=== PATIENT | male | born 1980 ===

== ENCOUNTER 2019-08-30 14:05 | Observation (INO) | payer OTHER, SELFPAY ==
[2019-08-30] VITALS (53 sets, daily range): BP systolic 110–145; BP diastolic 48–87; PULSE 65–94; RESP 10–31; TEMP 36.1–37.1; O2SAT 94–99
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
[2019-08-30] MEDS: Normal Saline 1,000 ML 1000 ML IV (14:22)
[2019-08-30 14:28] LABS: Abs Immature Grans 0.03 k/cumm (0.0-0.09); Absolute Basophil Count 0.02 k/cumm (0.0-0.2); Absolute Eosinophil Count 0.06 k/cumm (0.0-0.7); Absolute Lymphocyte Count 1.84 k/cumm (1.2-3.4); Absolute Monocyte Count 0.71 k/cumm (0.11-0.7); Absolute Neutrophil Count 8.06 k/cumm (1.2-6.7); Basophils % 0.2; Eosinophils % 0.6; HCT 42.6 % (40.0-50.0); HGB 14.5 g/dL (13.5-17.5); Immature Grans % 0.3 %; Lymphocytes % 17.2; Mean Corpuscular Hemoglobin 30.5 pg (27.0-33.0); Mean Corpuscular Volume 89.5 fL (80-95); Mean Platelet Volume 11.1 fL (8.0-11.0); Monocytes % 6.6; Neutrophils % 75.1; Platelet Count 252 x1000/uL (130-400); RBC 4.76 m/cumm (4.50-6.00); RBC Distribution Width 12.6 % (11.8-14.1); White Blood Cell Count 10.72 k/cumm (4.4-10.8)
[2019-08-30 14:46] LABS: ALT 46 U/L (16-63); AST 41 U/L (15-37); Albumin 4.2 g/dL (3.4-5.0); Alkaline Phosphatase 65 U/L (46-116); Anion Gap 10.6 mmol/L (3-11); BUN 15 mg/dL (7-18); Bilirubin, Total 0.7 mg/dL (0.2-1.0); CO2 26.4 mmol/L (21.0-32.0); CREATININE 1.11 mg/dL (0.70-1.30); Calcium 9.2 mg/dL (8.5-10.1); Chloride 103 mmol/L (98-107); Glucose 97 mg/dL (74-106); Lipase 1105 U/L (73-393); Potassium 3.9 mmol/L (3.5-5.1); Sodium 140 mmol/L (136-145); Total Protein 7.5 g/dL (6.4-8.2)
[2019-08-30] MEDS: HYDROmorphone 2 MG/ML VIAL 1 MG IVP (15:01)
--- NOTE | 2019-08-30 15:01 | DI.CT_ITS ---
EXAM: CT CHEST/ABD/PEL W CLINICAL HISTORY: Trauma right shoulder pain. TECHNIQUE: Imaging Protocol: Axial computed tomography images with coronal and sagittal reformatted images were created and reviewed CONTRAST MATERIAL: Intravenous: Omnipaque 350 Contrast volume:structured data in ml Oral: yes / no COMPARISON: CR XR SHOULDER RT COMPLETE 2+V from 08/30/2019 FINDINGS: CHEST: There is a comminuted fracture of the right clavicle. There are fractures of the right anterior 2nd through 4th ribs and fractures of the right posterior 5th through 7th ribs. No pneumothorax is seen. There are mildly increased pulmonary densities seen adjacent to the areas of rib fracture consisten t with mild contusion. There is no pleural or pericardial effusion. No spine fracture is seen. ABDOMEN: Liver: Normal density. No laceration. Gallbladder and biliary tract: No radiodense calculus or dilation. Pancreas: Normal density, no abnormal calcifications or inflammatory process. Spleen: Normal. Kidneys: Normal size, contour and axis. No radiodense stones or obstructive uropathy. No masses seen. Adrenal glands: No masses seen. Aorta: Abdominal portion non-dilated. Lymph nodes: Within normal limits. PELVIS: Bladder: Symmetric distention, no gross wall thickening. Bowel: No obstruction or bowel wall thickening. Diverticulosis without evidence of diverticulitis. No rmal appendix. Peritoneal cavity: No ascites, collection or mesenteric inflammatory response. Bones: Within normal limits. Reproductive organs: Within normal limits. IMPRESSION: Right clavicle fracture and multiple right rib fractures. Mild pulmonary contusions. No evidence of p neumothorax. No acute abnormality is seen in the abdomen or pelvis. RADIATION DOSE DELIVERED: Total DLP DATA REPOSITORY: All CT scans at this facility are submitted to the National Radiology Data Registry (NRDR) Dose Index Registry (DIR) with the [employer] ([employer]). RADIATION OPTIMIZATION: All CT scans at this facility use at least one of these dose optimization te chniques: automated exposure control; mA and/or kV adjustment per patient size (includes targeted exa ms where dose is matched to clinical indication); or iterative reconstruction.
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
[2019-08-30] MEDS: Omnipaque 350 MG/ML 100 ML BTL IJ (15:24)
[2019-08-30] MEDS: Normal Saline - Diluent 50 ML VIAL IV (15:24)
[2019-08-30] MEDS: Normal Saline Flush 10 ML SYR IVP ×2 (15:25→23:36)
--- NOTE | 2019-08-30 15:42 | NUR.NOTE ---
Nursing Note: PT stable, pain is 4/10. Pt reports This is the best i've felt since I got here. Vitals stable, awaiting radiology results.
--- NOTE | 2019-08-30 15:59 | DI.VRAD_ITS ---
PROCEDURE INFORMATION: Exam: XR Right Shoulder Exam date and time: 08/30/2019 3:12 PM Age: 39 years old Clinical indication: Other: Trauma TECHNIQUE: Imaging protocol: XR Right shoulder. Views: 2 or more views. COMPARISON: No relevant images were readily available for comparison purposes. FINDINGS: Redemonstrated right clavicular fracture as well as multiple rib fractures which are better evaluated on the same day CT chest abdomen and pelvis. Please see the associated report. No acute fracture or dislocation of the right shoulder otherwise. Visualized lung is clear. Impression: Redemonstrated right clavicular and right rib fractures which are better seen on the same day CT. No acute fracture or dislocation of the shoulder otherwise. Dictated and Authenticated by: Alessio Walsh MD. Ordering:PADMINI Morales MD
--- NOTE | 2019-08-30 16:23 | NUR.NOTE ---
Nursing Note: 1515 pt requested additional pain medication---per provider wait 30 min and see if still needed----1545 provider decided pt could have an additional 0.5 mg of Dilaudid---when I brought it in to pt he decided he was comfortable enough and declined medication at this time--med wasted with Pao Morales RN witnessing.
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
--- NOTE | 2019-08-30 17:50 | DI.VRAD_ITS ---
PROCEDURE INFORMATION: Exam: CT Chest With Contrast Exam date and time: 08/30/2019 3:15 PM Age: 39 years old Clinical indication: Other: Trauma right shoulder pain TECHNIQUE: Imaging protocol: Computed tomography of the chest with intravenous contrast. Radiation optimization: All CT scans at this facility use at least one of these dose optimization techniques: automated exposure control; mA and/or kV adjustment per patient size (includes targeted exams where dose is matched to clinical indication); or iterative reconstruction. COMPARISON: No relevant images were readily available for comparison purposes. FINDINGS: Lungs: No suspicious pulmonary nodules identified. Small associated pulmonary contusions are present at sites of rib fracture. Heart: Heart is normal size. Liver: Hypoattenuating hepatic lesion which would be statistically benign in a patient with no past history of malignancy. No follow up required unless clinically indicated. Liver is otherwise unremarkable. Gallbladder and bile ducts: Gallbladder is unremarkable. Pancreas: Pancreas is unremarkable. Spleen: Spleen is unremarkable. Adrenals: Unremarkable bilateral adrenals. Kidneys and ureters: Unremarkable bilateral kidneys. Stomach and bowel: Nonobstructive bowel. Diverticulosis without evidence of diverticulitis. Appendix: Normal caliber appendix. Intraperitoneal space: Unremarkable. Vasculature: Aorta is normal caliber. Lymph nodes: No axillary, mediastinal, or hilar lymphadenopathy. No suspicious lymphadenopathy. Bladder: Bladder is unremarkable. Reproductive: Prostatic calcifications. Bones/joints: Scattered bony degenerative changes. Benign-appearing sclerotic lesion within the left iliac bone. Image 100 series 4. There is a comminuted mild to moderately displaced fracture of the right mid to distal clavicle. Acute appearing nondisplaced fracture of the right 1st rib anteriorly. Acute appearing comminuted mildly displaced fracture of the right anterior 2nd rib. Nondisplaced acute appearing fracture of the right anterior 3rd rib. Nondisplaced acute appearing fracture of the right anterolateral 4th rib. Nondisplaced acute appearing fracture of the right anterolateral 5th rib. Comminuted minimally displaced fracture of the right posterior 6th rib as well as a nondisplaced fracture of the lateral 6th rib. Nondisplaced acute appearing fracture of the right posterior 7th rib. Soft tissues: Surgical changes along the right inguinal region likely related to prior right inguinal repair. Superficial soft tissues are otherwise unremarkable. Other findings: Thyroid is unremarkable. IMPRESSION: Multiple acute appearing rib fractures as detailed with associated small pulmonary contusions at site of several rib fractures. No pneumothorax. Comminuted mildly displaced right mid to distal clavicular fracture. PROCEDURE INFORMATION: Exam: CT Abdomen And Pelvis With Contrast Exam date and time: 08/30/2019 3:15 PM Age: 39 years old Clinical indication: Other: Trauma right shoulder pain TECHNIQUE: Imaging protocol: Computed tomography of the abdomen and pelvis with intravenous contrast. Radiation optimization: All CT scans at this facility use at least one of these dose optimization techniques: automated exposure control; mA and/or kV adjustment per patient size (includes targeted exams where dose is matched to clinical indication); or iterative reconstruction. Contrast material: OMNIPAQUE 350; Contrast volume: 100 ml; Contrast route: INTRAVENOUS (IV); COMPARISON: No relevant images were readily available for comparison purposes. FINDINGS: Lungs: No suspicious pulmonary nodules identified. Small associated pulmonary contusions are present at sites of rib fracture. Heart: Heart is normal size. Liver: Hypoattenuating hepatic lesion which would be statistically benign in a patient with no past history of malignancy. No follow up required unless clinically indicated. Liver is otherwise unremarkable. Gallbladder and bile ducts: Gallbladder is unremarkable. Pancreas: Pancreas is unremarkable. Spleen: Spleen is unremarkable. Adrenals: Unremarkable bilateral adrenals. Kidneys and ureters: Unremarkable bilateral kidneys. Stomach and bowel: Nonobstructive bowel. Diverticulosis without evidence of diverticulitis. Appendix: Normal caliber appendix. Intraperitoneal space: Unremarkable. Vasculature: Aorta is normal caliber. Lymph nodes: No axillary, mediastinal, or hilar lymphadenopathy. No suspicious lymphadenopathy. Bladder: Bladder is unremarkable. Reproductive: Prostatic calcifications. Bones/joints: Scattered bony degenerative changes. Benign-appearing sclerotic lesion within the left iliac bone. Image 100 series 4. There is a comminuted mild to moderately displaced fracture of the right mid to distal clavicle. Acute appearing nondisplaced fracture of the right 1st rib anteriorly. Acute appearing comminuted mildly displaced fracture of the right anterior 2nd rib. Nondisplaced acute appearing fracture of the right anterior 3rd rib. Nondisplaced acute appearing fracture of the right anterolateral 4th rib. Nondisplaced acute appearing fracture of the right anterolateral 5th rib. Comminuted minimally displaced fracture of the right posterior 6th rib as well as a nondisplaced fracture of the lateral 6th rib. Nondisplaced acute appearing fracture of the right posterior 7th rib. Soft tissues: Surgical changes along the right inguinal region likely related to prior right inguinal repair. Superficial soft tissues are otherwise unremarkable. Other findings: Thyroid is unremarkable. IMPRESSION: Multiple acute appearing rib fractures as detailed with associated small pulmonary contusions at site of several rib fractures. No pneumothorax. Comminuted mildly displaced right mid to distal clavicular fracture. Dictated and Authenticated by: Alessio Walsh MD. Ordering:PADMINI Morales MD
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
[2019-08-30] MEDS: Ketorolac 30 MG/ML VIAL IVP ×2 (18:46→23:36)
[2019-08-30] MEDS: oxyCODONE 5 MG TAB PO (20:58)
[2019-08-30] MEDS: Docusate Sodium 100 MG CAP PO (20:59)
--- NOTE | 2019-08-31 | DI.RAD_ITS ---
EXAM: XR CHEST 2V PA LATERAL CLINICAL HISTORY: f/u pulm contusion and rib fractures TECHNIQUE: 2D digital imaging was performed. COMPARISON: CT CT CHEST/ABD/PEL W from 08/30/[address] CHEST/ABD/PEL W from 08/30/2019 CR XR SHOULDER RT COMPLETE 2+V from 08/30/2019 FINDINGS: There is a right clavicle fracture. Lateral view is limited by patient arm positioning. No pneumoth orax is seen. The lungs are not well inflated. There is basilar atelectasis. The heart size is nor mal. IMPRESSION: Mild basilar atelectasis. DATA REPOSITORY: RADIATION DOSE DELIVERED:
[2019-08-31 00:59] VITALS: BP 124/61; PULSE 65; RESP 17; TEMP 37.1; O2SAT 98
[2019-08-31 03:34] VITALS: BP 117/77; PULSE 61; RESP 16; TEMP 37.1; O2SAT 98
[2019-08-31] MEDS: Ketorolac 30 MG/ML VIAL IVP (05:41)
[2019-08-31] MEDS: oxyCODONE 5 MG TAB PO (06:59)
[2019-08-31] MEDS: Acetaminophen 325 MG TAB 650 MG PO (07:02)
[2019-08-31 07:16] LABS: ALT 39 U/L (16-63); AST 28 U/L (15-37); Albumin 3.7 g/dL (3.4-5.0); Alkaline Phosphatase 56 U/L (46-116); Anion Gap 8.3 mmol/L (3-11); BUN 12 mg/dL (7-18); CO2 26.7 mmol/L (21.0-32.0); CREATININE 0.98 mg/dL (0.70-1.30); Calcium 8.8 mg/dL (8.5-10.1); Chloride 105 mmol/L (98-107); Glucose 91 mg/dL (74-106); Potassium 4.1 mmol/L (3.5-5.1); Sodium 140 mmol/L (136-145); Total Protein 6.8 g/dL (6.4-8.2)
--- NOTE | 2019-08-31 07:22 | DI.VRAD_ITS ---
PROCEDURE INFORMATION: Exam: XR Chest, 2 Views Exam date and time: 08/31/2019 6:51 AM Age: 39 years old Clinical indication: Injury or trauma; Fall; Follow-up exam; Sprain or strain TECHNIQUE: Imaging protocol: XR of the chest Views: 2 views. COMPARISON: CT chest 08/30/2019. FINDINGS: Lungs: Subsegmental atelectasis at the lung bases. Pleural space: Unremarkable. No pleural effusion. No pneumothorax. Heart/Mediastinum: Unremarkable. No cardiomegaly. Bones/joints: Displaced fracture of the right distal clavicle. There is a minimally displaced fracture of the right anterior 2nd rib. Rest of the rib fractures visualized on the prior chest CT are not well visualized on this study. IMPRESSION: Bibasilar subsegmental atelectasis. Displaced fracture of the right distal clavicle and right anterior 2nd rib as previously described.Rest of the rib fractures visualized on the prior chest CT are not well visualized on this study. Dictated and Authenticated by: Sindy Carpenter MD. Ordering:TERI Hdez MD
[2019-08-31 07:26] LABS: Lipase 108 U/L (73-393)
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
[2019-08-31 12:48] LABS: COVID-19 RT-PCR UVMMC Result Negative (Negative)
== END 2019-08-31 10:10 | disposition home or self-care (01) ==
LOC: ER 18:51 → MS 19:10
PROVIDERS: Admitting Provider Surgery; Emergency Provider Registered Nurse Emergency; Visit Provider Surgery
DX: S42.031A Displaced fracture of lateral end of right clavicle, initial encounter for closed fracture (principal); S27.321A Contusion of lung, unilateral, initial encounter; S22.41XA Multiple fractures of ribs, right side, initial encounter for closed fracture; Z11.59 Encounter for screening for other viral diseases; V19.3XXA Pedal cyclist (driver) (passenger) injured in unspecified nontraffic accident, initial encounter; Y93.55 Activity, bike riding; Y92.838 Other recreation area as the place of occurrence of the external cause
CPT/HCPCS: 64450; 76942; 36415; 74177; 80053; 83690; 96361; 96374; 96375; 99217; 99235; 99252; 99285; U0003; 70450; 71046; 71260; 72125; 73030; 85025; G0378; J1885; J3490; L3650